=== PATIENT | male | born 1950 | race Caucasian/White ===

== ENCOUNTER 2017-02-14 10:24 | Emergency (ER) | payer MEDICARE, OTHER ==
[~2017-02-14] VITALS: Ht 165.1 cm; Wt 50.0 kg
[2017-02-14 10:24] VITALS: Ht 165.1 cm; Wt 50.0 kg
[~2017-02-14 10:24] MED LIST: ASPI-664 PO; CA CHLORIDE 10% 10 ML SYRINGE ONE; CARV25TA79 PO; CLOP75TA27 PO; EPINEPHrine 0.1 MG/ML SYG ONE; GABA300C16 PO; HYDR-3672 PO; INSU100C SC; ISOS30TA PO; LANT3I SC; NA BICARBONATE 8.4% 50 ML SYG ONE; NIFE90TA PO; SIMV20TA2 PO; VALS160T20 PO
[2017-02-14] MEDS ORDERED: EPINEPHrine 0.1 MG/ML SYG ONE (10:33)
--- NOTE | 2017-02-14 10:37 | ERD ---
ER Documentation Chief Complaint Date/Time DATE: 02/14/17 TIME: 10:37 Chief Complaint HPI 66-year-old male with a history of end-stage renal disease on hemodialysis, last dialysis yesterday, presenting with ambulance for cardiac arrest. He was with his daughter walking down the street when he felt weak in his legs and sat on the floor. After this he was unresponsive. 911 told her to start CPR which she did. When EMS arrived, the patient was asystole. 3 rounds of epi were given without any return of spontaneous circulation. His rhythm was asystole and PEA. He had no shockable rhythm at any time. Per his daughter, he has felt short of breath for several days but this improved after dialysis yesterday. Otherwise he was asymptomatic until today. ROS unable to obtain as patient comatose Medications Home Meds Active Scripts Nifedipine* (Procardia XL*) 90 Mg Tabsr, 90 MG PO DAILY, #30 BOTTLE Prov:OPAL VELASQUEZ MD 02/02/14 Isosorbide Mononitrate* (Imdur*) 30 Mg Tabsr, 30 MG PO DAILY, #30 BOTTLE Prov:OPAL VELASQUEZ MD 02/02/14 Hydralazine Hcl* (Hydralazine Hcl*) 50 Mg Tab, 50 MG PO Q8, #90 TAB Prov:OPAL VELASQUEZ MD 02/02/14 Clopidogrel Bisulfate (Clopidogrel) 75 Mg Tab, 75 MG PO DAILY, #30 BOX Prov:OPAL VELASQUEZ MD 02/02/14 Reported Medications Insulin Lispro (Humalog) 100 U/Ml Cartridge, 5 UNITS SC WITH DINNER, EA 01/31/14 Insulin Glargine* (Lantus*) 100 Unit/Ml Soln, 7 UNIT SC AM, EA 01/31/14 Gabapentin* (Gabapentin*) 300 Mg Capsule, 300 MG PO HS, CAP 01/31/14 Carvedilol* (Carvedilol*) 25 Mg Tablet, 25 MG PO BID, TAB 01/31/14 Aspirin* (Aspirin* EC) 81 Mg Tablet.dr, 81 MG PO DAILY, TAB 01/31/14 Valsartan* (Diovan*) 160 Mg Tablet, 160 MG PO BID, TAB 01/31/14 Simvastatin (Simvastatin) 20 Mg Tablet, 20 MG PO HS, TAB 01/31/14 Allergies Allergies: Coded Allergies: No Known Allergy (Unverified , 01/31/14) PMhx/Soc unable to obtain History of Surgery: Yes (left avf placement) Anesthesia Reaction: No Hx Neurological Disorder: No Hx Respiratory Disorders: No Hx Cardiac Disorders: Yes (htn, high cholesterol) Hx Psychiatric Problems: No Hx Miscellaneous Medical Probl: No Hx Alcohol Use: Yes Hx Substance Use: Yes Hx Tobacco Use: Yes FmHx Family History: other (unable to obtain) Physical Exam Physical Exam VITAL SIGNS: GENERAL: Patient is lying on gurney and is unresponsive HEAD: Head is normocephalic. No evidence of trauma. No scalp or facial swelling EYES: Pupils are nonreactive, irregularly-shaped ENT: Nahum airway in place, actively being bagged NECK: Supple. No masses RESPIRATORY: Breath sounds equal bilaterally with bagging CV: No heart sounds heard. . No palpable carotid or femoral pulses ABDOMEN: Soft, non-distended. No masses EXTREMITIES: No deformity SKIN: No jaundice. No diaphoresis NEUROLOGIC: Not alert. Unresponsive to external stimuli Procedures/MDM EKG: Rate/Rhythm: Sinus rhythm with premature atrial complexes QRS, ST, T-waves: ST depressions in the anterolateral leads Impression: Findings concerning for ischemia, no STEMI ED COURSE/MDM Endotracheal Intubation by me: Pre assessment performed. See preceding note for details. Pre-oxygenation performed with 100% oxygen RSI: Medications not given Blade: Mac 4 ET Tube: 7.5 cm Depth: 22 cm at the lip Intubation confirmed by equal breath sounds, quiet over the stomach. Patient presented in cardiac arrest. When he arrived CPR was in progress. Reportedly his downtime was over 30 minutes. I spoke with the patient's daughter, and I discussed with her that after prolonged CPR without return of spontaneous circulation, neurological recovery is very poor, even with ROSC. She expressed to me that she wanted to stop CPR. As soon as CPR was stopped, the patient had pulses on exam. I pulled out his Nahum tube and I reintubated him. Soon after he lost pulses. ACLS was performed. The patient intermittently lost pulses after epinephrine wore off. I spoke with the patient 's daughter again and she wanted to stop CPR given the poor neurologic prognosis at this time. Upon reevaluation the patient, his pupils were fixed, nonreactive to light. He had no spontaneous respirations and no pulses. Departure Diagnosis: Primary Impression: Cardiac arrest Condition: Critical () ANTONIO REYES MD Feb 14, 2017 10:37
== END 2017-02-14 14:51 | disposition expired ==
LOC: E/R 10:24
DX: I46.9 Cardiac arrest, cause unspecified (principal); I12.0 Hypertensive chronic kidney disease with stage 5 chronic kidney disease or end stage renal disease; N18.6 End stage renal disease; E11.22 Type 2 diabetes mellitus with diabetic chronic kidney disease; Z79.4 Long term (current) use of insulin; Z79.82 Long term (current) use of aspirin; Z99.2 Dependence on renal dialysis
CPT/HCPCS: 31500; 99285; J0171; 93005